=== PATIENT | female | born 1990 | race Caucasian/White ===

== ENCOUNTER 2017-02-27 05:27 | Emergency (ER) | payer BC ==
--- NOTE | ~2017-02-27 | CT2 ---
[facility] A Service of [facility] RADIOLOGY TEXT RESULTS PATIENT: ISAURA MCNALLY LOCATION: [facility] : [birth year] UNIT #: [id number] AGE: [address]: Quita Conley MD SEX: F ORDER DR: [id number] [facility] [address] [place], [place] [address] [id number] E MR#: [id number] Acc #: [id number] NAME: ISAURA MCNALLY. : 1990 SEX: F STUDY DATE/TIME: 02/27/2017 5:37 UNIT: EDY ROOM: STUDY DESCRIPTION: CT Abd and Pelv W Cont Attending Physician: Quita Conley M.D. Ordering Physician: Lazaro Perez M.D. Primary Care Physician: No Primary Care Physician MEDICAL IMAGING REPORT This report is preliminary unless electronic signature is present EXAM CT of the abdomen and pelvis with contrast dated 02/27/2017. COMPARISON CT abdomen and pelvis with contrast dated 11/10/2010. HISTORY Low back pain and pelvic pain for [address] of the abdomen and pelvis was obtained with IV and oral contrast in the axial plane followed by sagittal and coronal reformats. This CT exam was performed with one or more of the following radiation dose reduction techniques: automatic exposure control, adjustment of mA and/or kV according to patient size, and iterative reconstruction. FINDINGS LOWER CHEST: Minimal horizontal atelectatic changes are noted in the right lung base. No pleural effusion or pneumothorax is seen. Heart is of normal size. ABDOMEN: Status post cholecystectomy. Liver, spleen, adrenal glands, kidneys, pancreas are within normal limits. Bowel loops do not demonstrate any significant abnormality. No evidence of bowel obstruction, diverticula, free fluid, or free air. Appendix is within normal limits. 1.4 cm splenule is incidentally noted. Spine is unremarkable. PELVIS: Uterus, bilateral adnexa, decompressed urinary bladder, and colon do not demonstrate any significant abnormality. IMPRESSION [facility] A Service of [facility] RADIOLOGY TEXT RESULTS PATIENT: ISAURA MCNALLY LOCATION: [facility] : [birth year] UNIT #: [id number] AGE: [address]: Quita Conley MD SEX: F ORDER DR: 1. No acute abnormality in the abdomen or pelvis. 2. Minimal horizontally linear subsegmental atelectasis in the right lower lobe. Dictated by... Dragan Sanchez M.D. THIS IS AN ELECTRONICALLY VERIFIED REPORT Dragan Sanchez M.D. at 02/28/2017 1:51 PM CPR/tmw TD: 02/27/2017 08:51 JOB #: [id number] MEDICAL IMAGING REPORT Page 1 of 1 COPY
[2017-02-27 04:25] LABS: URINE SOURCE CLEAN CATCH
[2017-02-27 04:30] LABS: URINE APPEARANCE TURBID; URINE BILIRUBIN NEG (NEG); URINE BLOOD 3+ (NEG); URINE COLOR DK YELLOW; URINE GLUCOSE NEG (NEG); URINE KETONE TRACE (NEG); URINE LEUKOCYTE ESTERASE 3+ (NEG); URINE NITRATE POS (NEG); URINE PH 5.5 (5-8); URINE PROTEIN 2+ (NEG); URINE SPECIFIC GRAVITY 1.019 (1.003-1.035)
[2017-02-27 04:31] LABS: BASOPHIL# 0.1 X10e3 (0-0.3); BASOPHIL% 0.9 % (0-2.5); EOSINOPHIL# 0.2 X10e3 (0-0.7); EOSINOPHIL% 1.2 % (0.0-7.0); HEMATOCRIT 43.5 % (35.0-45.0); HEMOGLOBIN 14.4 gm/dL (12.0-16.0); LYMPHOCYTE# 3.3 X10e3 (1.0-3.5); LYMPHOCYTE% 22.5 % (17.0-45.0); MEAN CELL VOLUME 81.6 FL (83-96); MEAN CORPUSCULAR HGB CONC 33.2 g/dL (30-36); MONOCYTE% 6.5 % (3.0-12.0); NEUTROPHIL# 10.2 X10e3 (1.5-7.1); NEUTROPHIL% 68.9 % (40-75); PLATELET COUNT 298 X10e3 (140-420); RED BLOOD COUNT 5.33 X10e (3.90-5.30); RED CELL DISTRIBUTION WIDTH 14.2 % (11.0-15.5); WHITE BLOOD COUNT 14.7 X10e3 (4.0-10.5)
[2017-02-27 04:33] LABS: CULTURE INDICATED? YES; URINE BACTERIA AUWI 4+ (NEGATIVE); URINE SQUAMOUS EPITHELIAL CELL MOD /[HPF]; UWBCS1 AUWI 100-200 (0-5)
[2017-02-27 04:39] LABS: DIFF IND NO
[2017-02-27 04:45] LABS: URINE YEAST PRESENT
[2017-02-27 04:54] LABS: ALBUMIN SERUM 3.8 g/dL (3.5-5.0); BILIRUBIN, DIRECT 0.1 mg/dL (0.0-0.2); BILIRUBIN,INDIRECT 0.3 mg/dL (0.0-0.9); BILIRUBIN,TOTAL 0.4 mg/dL (0.2-2.0); CREATININE SERUM 1.1 mg/dL (0.6-1.4); GLOM FILT RATE Estimated 69.3 mL/min (>60); POTASSIUM 3.9 mmol/L (3.5-5.1); PROTEIN TOTAL SERUM 7.6 g/dL (6.0-8.3)
[~2017-02-27 05:27] MED LIST: BIRTH CONTROL PILL PO; CIPRO PO; FLAGYL PO; LORTAB 7.5-5001 TAB PO; NO MEDICATIONS; PERCOCET5/325 PO; PRILOSEC PO; ULTRAM PO; VICODIN 5/1 TAB 5/50 PO
== END 2017-02-27 08:05 | disposition home or self-care (01) ==
LOC: CED 05:27
PROVIDERS: Emergency Medicine
DX: N12 Tubulo-interstitial nephritis, not specified as acute or chronic (principal); Z90.49 Acquired absence of other specified parts of digestive tract; F17.200 Nicotine dependence, unspecified, uncomplicated
CPT/HCPCS: 36415; 74177; 80048; 80076; 81003; 82150; 83690; 84703; 85025; 87086; 87088; 87186; 96361; 96365; 96375; 99284; J0696; J2270; J2405; Q9967